=== PATIENT | male | born 1980 | race Caucasian/White ===

== ENCOUNTER 2017-01-05 11:30 | Emergency (ER) | payer MEDICAID ==
[2010-05-20] VITALS: BMI 34.5
== END 2017-01-05 14:09 | disposition home or self-care (01) ==
LOC: D.ER 11:30
DX: L02.414 Cutaneous abscess of left upper limb (principal); F31.9 Bipolar disorder, unspecified; I10 Essential (primary) hypertension; G47.00 Insomnia, unspecified; F43.10 Post-traumatic stress disorder, unspecified; F17.200 Nicotine dependence, unspecified, uncomplicated